=== PATIENT | female | born 1980 | race Two or more races ===

== ENCOUNTER 2020-01-17 23:51 | Emergency (ER) | payer OTHER ==
[~2020-01-17] VITALS: Ht 149.9 cm; Wt 63.6 kg
[2020-01-18 00:54] LABS: APPEARANCE,URINE CLOUDY (CLEAR); BILIRUBIN,URINE NEGATIVE (NEGATIVE); GLUCOSE, URINE (UA) NEGATIVE (NEGATIVE); KETONES,URINE NEGATIVE (NEGATIVE); LEUKOCYTE ESTERASE ,URINE LARGE (NEGATIVE); NITRATE,URINE NEGATIVE (NEGATIVE); OCCULT BLOOD,URINE LARGE (NEGATIVE); PH,URINE 6.5 (5.0-8.0); PROTEIN,URINE POS 1+ (NEGATIVE); UROBILINOGEN,URINE 0.2 mg/dL (<=1.0)
[2020-01-18 01:00] LABS: BACTERIA,URINE Rare /HPF (None Seen); RBC,URINE 51-100 /HPF (0-2); SQUAMOUS EPITHELIAL CELL,UR Few /LPF (None Seen); WBC,URINE 51-100 /HPF (0-5)
[2020-01-18 01:10] VITALS: BP 132/73
[2020-01-18] MEDS ORDERED: NITROFURANTOIN MACROCRYSTAL 100 MG CAPSULE PO ONE (01:30)
== END 2020-01-18 01:55 | disposition home or self-care (01) ==
LOC: EMS 23:52
DX: N39.0 Urinary tract infection, site not specified (principal); R31.9 Hematuria, unspecified
CPT/HCPCS: 87086

== ENCOUNTER 2020-01-30 19:37 | Emergency (ER) | payer OTHER ==
[~2020-01-30] VITALS: Ht 149.9 cm; Wt 63.6 kg
[2020-01-30 21:08] VITALS: BP 110/68
[2020-01-30] MEDS ORDERED: DiphenhydrAMINE HCL 25 MG CAPSULE PO ONE (21:15)
[2020-01-30] MEDS ORDERED: PredniSONE 20 MG TABLET PO ONE (21:15)
== END 2020-01-30 21:37 | disposition home or self-care (01) ==
LOC: EMS 19:37
DX: L50.9 Urticaria, unspecified (principal); Z88.0 Allergy status to penicillin
CPT/HCPCS: 99283; J7512

== ENCOUNTER 2023-06-11 11:20 | Emergency (ER) | payer OTHER ==
[~2023-06-11] VITALS: Ht 152.4 cm; Wt 69.5 kg
[2023-06-11 11:42] VITALS: BP 132/70; PULSE 85; RESP 16; TEMP 98.6
[2023-06-11] MEDS ORDERED: METH4TAB3 PO (12:37)
== END 2023-06-11 13:04 | disposition home or self-care (01) ==
LOC: EMS 11:20
DX: L29.9 Pruritus, unspecified (principal); Z88.0 Allergy status to penicillin
CPT/HCPCS: 99283; Z7502